=== PATIENT | female | born 1960 | race African-American/Black ===

== ENCOUNTER 2017-07-03 10:07 | Day surgery (SDC) | payer BC ==
[2017-07-02 15:12] VITALS: BMI 31.8
[2017-07-03] MEDS ORDERED: PROPOFOL 20 ML ONE ×2 (10:12)
[2017-07-03 11:26] VITALS: TEMP 97.6
[2017-07-03 12:22] VITALS: BP 128/80; PULSE 60
== END 2017-07-03 12:15 | disposition home or self-care (01) ==
LOC: JASU-ENDO 10:07
PROVIDERS: ATTEND Internal Medicine Gastroenterology
PROC: 0DJD8ZZ Inspection of Lower Intestinal Tract, Via Natural or Artificial Opening Endoscopic (ICD-10-PCS; principal; 2017-07-03 10:30)
DX: Z86.010 Personal history of colon polyps (principal); K57.30 Diverticulosis of large intestine without perforation or abscess without bleeding; K64.8 Other hemorrhoids

== ENCOUNTER 2018-09-14 05:58 | Inpatient (IN) | payer BC ==
[2018-09-10 10:11] VITALS: BMI 30.4
[2018-09-14] MEDS ORDERED: GABAPENTIN 300 MG CAPSULE (FP) PO ONE (06:41)
[2018-09-14] MEDS ORDERED: CELECOXIB 200 MG CAPSULE PO ONE (06:41)
[2018-09-14] MEDS ORDERED: TRANEXAMIC ACID 1000 MG/10 ML VIAL IVPUSH ONE (06:41)
[2018-09-14] MEDS ORDERED: CEFAZOLIN 2 GM/D5W 2 GM/50 ML ML IVPB ONE (06:41)
[2018-09-14] MEDS ORDERED: oxyCODONE HCL 10 MG SUSTAINED ACTING TABLET PO ONE (06:41)
[2018-09-14] MEDS ORDERED: GABAPENTIN 300 MG CAPSULE (FP) ONE (07:00)
[2018-09-14] MEDS ORDERED: CELECOXIB 200 MG CAPSULE ONE (07:00)
[2018-09-14] MEDS ORDERED: oxyCODONE HCL 10 MG SUSTAINED ACTING TABLET ONE (07:00)
[2018-09-14] MEDS ORDERED: SUCCINYLCHOLINE CHLORIDE 200 MG/10 ML VIAL ONE (07:16)
[2018-09-14] MEDS ORDERED: ePHEDrine SULFATE 50 MG/1 ML AMPULE ONE (07:16)
[2018-09-14] MEDS ORDERED: PROPOFOL 20 ML ONE ×6 (07:16)
[2018-09-14] MEDS ORDERED: BUPIVACAINE HCL/PF 0.5% (5MG/ML) 10 ML VIAL ONE (07:20)
[2018-09-14] MEDS ORDERED: BUPIVACAINE LIPOSOME/PF (EXPAREL) 266 MG/20 ML VIAL ONE (07:21)
[2018-09-14] MEDS ORDERED: MIDAZOLAM HCL 2 MG/2 ML SINGLE DOSE VIAL ONE (07:21)
[2018-09-14] MEDS ORDERED: ceFAZolin SODIUM 1 GM VIAL ONE (07:28)
[2018-09-14] MEDS ORDERED: VANCOMYCIN 1,000 MG VIAL (RESTRICTED TO ID ONLY) ONE (07:29)
--- NOTE | 2018-09-14 07:55 | HP ---
Satellite [facility] - Chief Complaint Chief Complaint: right knee pain - Past Medical History Allergies/Adverse Reactions: Allergies Allergy/AdvReac Type Severity Reaction Status Date / Time No Known Allergies Allergy Verified 09/10/18 10:14 ...LMP: 01/16/14 - Current Medications Current Medications: Home Medications Medication Instructions Recorded Amlodipine Besylate [Norvasc -] 10 mg PO DAILY 05/16/13 Levothyroxine [Synthroid -] 100 mcg PO DAILY 05/16/13 Rosuvastatin Calcium [Crestor] 20 mg PO HS 05/16/13 Sitagliptin Phos/Metformin HCl 1 each PO DAILY 07/03/17 [Janumet 50-500 mg Tablet] Acetaminophen [Tylenol] 650 mg PO ASDIR PRN 09/14/18 Satellite Physical Exam - Physical Examination Vital Signs: Vital Signs Period Temp Pulse Resp BP Sys/Hill Pulse Ox Last 24 Hr 98.1 F 72 18 133/84 General Appearance: Well Nourished, Well Developed, Alert & Oriented x3 ENT: Clear Lung: Normal air movement Heart: Regular rate & rhythm Extremities: Other (right knee- well healed surgical scar, + ttp, decr rom, nvi xrays show medial compartment prosthesis in good position, diffuse djd in lateral and PF) Neurological: Intact, Alert, Oriented Satellite Impression/Plan - Impression/Plan Impression: right knee djd s/p medial UKR Operative Procedure: right conversion TKR- lashonda Date to be Performed: 09/14/18
[2018-09-14] MEDS ORDERED: MAG HYDROX/AL HYDROX/SIMETH 30 ML UNIT-DOSE CUP PO PRN (10:10)
[2018-09-14] MEDS ORDERED: ONDANSETRON 4 MG/2 ML VIAL IVPUSH PRN ×2 (10:10→11:12)
[2018-09-14] MEDS ORDERED: MAGNESIUM HYDROX 2400MG/30ML ORAL SUSPENSION 30 ML CUP PO PRN (10:10)
--- NOTE | 2018-09-14 10:13 | OP ---
Operative Note - Note: Operative Date: 09/14/18 (zain) Pre-Operative Diagnosis: right knee djd s/p ukr Operation: right knee conversion TKR- makoplasty, removal of hardare Post-Operative Diagnosis: Same as Pre-op Surgeon: Cabrera Celeste Buffing Machine Operator Semiautomatic: Eamon Shi) Anesthesiologist/DOCUMENT MANAGEMENT SPECIALIST: Vineet Rankin Anesthesia: Spinal, Local Specimens Removed: bone fragments, synovium, UKR prosthesis Estimated Blood Loss (mls): 150 Operative Report Dictated: Yes
[2018-09-14] MEDS ORDERED: LACTATED RINGERS SOLUTION 1,000 ML IV SCH (10:15)
[2018-09-14] MEDS ORDERED: PROMETHAZINE HCL 25 MG/1 ML VIAL IVPUSH PRN (11:12)
[2018-09-14] MEDS ORDERED: ACETAMINOPHEN 325 MG TABLET (FP) PO SCH (11:15)
[2018-09-14] MEDS: oxyCODONE HCL 5 MG TABLET PO PRN ×2 (11:23→14:25)
[2018-09-14] MEDS: INSULIN SLIDING SCALE (NOVOLOG) 1 VIAL SQ SCH ×3 (14:32→21:49)
[2018-09-14] MEDS: CEFAZOLIN 2 GM/D5W 2 GM/50 ML ML IVPB SCH ×2 (17:10→23:10)
[2018-09-14] MEDS: ACETAMINOPHEN 325 MG TABLET (FP) PO SCH ×2 (17:12→23:11)
--- NOTE | 2018-09-14 18:50 | OP ---
DATE OF OPERATION: 09/14/2018 PREOPERATIVE DIAGNOSIS: Degenerative joint disease right knee, status post partial knee replacement. POSTOPERATIVE DIAGNOSIS: Degenerative joint disease right knee, status post partial knee replacement. PROCEDURE PERFORMED: Revision of right partial knee replacement to a right total knee replacement, with robotic-assisted navigation (MAKOplasty). SURGICAL ATTENDING: Cabrera Celeste MD COMPUTER RECYCLING WORKER: FRANDY Whiteside SECOND CYLINDER WORKER: Carlos Rowe MD ANESTHESIA: Regional and spinal. CLOSURE: A 3 femur, a 2 tibia, a 13 polyethylene, a 29 patella Triathlon components, cemented; number 1 Vicryl fascia, 0 and 2-0 subcutaneous, 3-0 Monocryl subcuticular, with skin glue for the skin. ESTIMATED BLOOD LOSS: Approximately 100 mL. COMPLICATIONS: None. CONDITION: To the recovery room in stable condition. DESCRIPTION OF PROCEDURE: The patient was taken to the operating room on September 14, 2018. Regional and spinal anesthesia was administered by the anesthesiologist. IV Kefzol was administered prophylactically prior to the case. A well-padded pneumatic tourniquet was placed on the right proximal thigh. The right lower extremity was prepped and draped in the usual sterile fashion. Utilizing the previous incision, which was a medial parapatellar incision for the patient's unicompartmental knee replacement, we propagated that incision and curved it around the patella more centrally proximally and extended it distally. Hemostasis was achieved with Bovie cautery. Sharp dissection was carried down to the level of the fascia with extension, which allowed us to perform the procedure. A medial parapatellar arthrotomy was then performed. The patella was inverted, and the knee was flexed up to 90 degrees. Subperiosteal dissection was performed on the anteromedial proximal tibia. The ACL and PCL and the anterior horn of the lateral meniscus were cut to facilitate bringing the knee forward. There was a lot of discolored synovium inside the knee and on the cartilage. A synovectomy was performed and sent to Pathology for evaluation. There was extensive disease on the lateral and patellofemoral quadrants of the knee. Check points were malleted both in the femur and in the tibia. Two pins were drilled in parallel fashion from the anteromedial section of the distal femur, from anterior proximal to posterior distal. These 2 pins were fastened with the femoral navigation array. Two small stab incisions were made a handbreadth below the tibial tubercle, and 2 pins were drilled through the outer cortex, engaging the posterior cortex but not through the posterior cortex. They were then fastened to the tibial navigation array. The knee was then registered with the navigation device by center of rotation of the hip, medial and lateral malleoli, multiple sites both on the femur and on the tibia. Confirmation of excellent registration was confirmed by "popping the bubbles." The knee was then stressed in both extension and 90 degrees of flexion to retread builder the gaps, medially and laterally. The virtual position of the component was manipulated to make sure that these gaps would be equal. The tibia was dropped to allow the tibial cut to be below the level of the tibial partial knee replacement baseplate. The polyethylene thickness was virtually adjusted accordingly to be a 13 mm thickness. The robot was then brought in the field and was used to cut the bones to the specifications which we determined on the virtual model of the knee. This was done after the unicompartmental components were removed. They were removed quite easily by osteotomes, with minimal bone loss. After the bone cuts were made, equal gaps were measured in both flexion and extension, with a 13-mm spacer. The box was then made on the femur for facilitating a 3 component. The trial component was malleted and fit line to line. A tibial baseplate size 2 with a 13-mm insert was allowed to "find itself." It was clipped into place and also confirmed to be in the ideal position by use of the navigation device as well. The knee was taken through a range of motion and found to go full extension and full flexion, with excellent stability throughout the range of motion. The patella was calipered for thickness and then osteotomized down to the appropriate level. A 29 lollipop was used to drill the lug holes in the patella. A trial component was then applied. The knee was taken through a range of motion and found to have excellent tracking of the patella throughout the range of motion with "no thumbs." The trial components were removed. The keel was made in the femur. Curettes were used to remove any residual cement that was both on the tibia and on the femur. It was decided to add a 50-mm stem to the tibial component, as there was some central bone loss due to removing of the cement from the keel and from the lug holes on the bottom of the component. The leg was exsanguinated with an Esmarch bandage. The knee was thoroughly irrigated to remove any loose fragments and soft tissue, and then dried thoroughly. The real total knee components were then cemented in using modern generation cement techniques with antibiotic cement and pressurization. After the cement was hardened, the knee was thoroughly inspected to remove all excess cement from in and around the knee. The real polyethylene was then clipped into place. Range of motion, stability and tracking were as described earlier. The knee was again thoroughly irrigated and then dried. Vancomycin powder was placed inside the incision. The medial parapatellar arthrotomy was then closed using number 1 Vicryl interrupted suture. After closure, the knee was again taken through a range of motion and found to have no undue tension on the repair, with excellent tracking and stability throughout. The subcutaneous was pulse antibiotic irrigated, and then closed with 0 and 2-0 Vicryl, and 3-0 Monocryl with skin glue was used for the skin. Prior to closure, the pins and check points were removed. The distal incisions were irrigated and closed with 4-0 undyed Vicryl. An Aquacel dressing was placed on both incisions, followed by a Mcelroy dressing. The tourniquet was only inflated for the portion of cementing in the component. It was then deflated prior to closure. The patient was awakened from anesthesia and transferred to the recovery room in stable condition. No complications. Estimated blood loss was about 100 to 150 mL. Anibal ARROYO/[id number]
[2018-09-14] MEDS: ROSUVASTATIN CA 20 MG TABLET (FP) PO SCH (21:00)
[2018-09-14] MEDS: SENNOSIDES/DOCUSATE COMBO (SENNA PLUS) TABLET (UD) PO SCH (21:00)
[2018-09-14] MEDS: oxyCODONE HCL 10 MG SUSTAINED ACTING TABLET PO SCH (21:00)
[2018-09-15] MEDS: ACETAMINOPHEN 325 MG TABLET (FP) PO SCH ×3 (05:34→12:10)
[2018-09-15] MEDS: oxyCODONE HCL 5 MG TABLET PO PRN ×2 (06:46→09:26)
[2018-09-15] MEDS: sitaGLIPtin PHOSPHATE 50 MG TABLET PO SCH (06:47)
[2018-09-15] MEDS: LEVOTHYROXINE NA 100 MCG TABLET (FP) PO SCH (06:47)
[2018-09-15] MEDS: metFORMIN HCL 500 MG TABLET (FP) PO SCH (06:47)
[2018-09-15] MEDS: INSULIN SLIDING SCALE (NOVOLOG) 1 VIAL SQ SCH ×4 (07:05→21:15)
[2018-09-15 08:00] LABS: HEMATOCRIT 30.5 % (32.4-45.2); HEMOGLOBIN 9.9 GM/dl (10.7-15.3); MCH 27.4 pg (25.7-33.7); MCHC 32.6 g/dl (32.0-36.0); MEAN CELL VOLUME 84.1 fl (80-96); MEAN PLT VOLUME 7.1 fl (7.5-11.1); PLATELET COUNT 408 K/MM3 (134-434); RBC 3.62 M/mm3 (3.60-5.2); RDW 13.6 % (11.6-15.6); WHITE BLOOD COUNT 8.1 K/mm3 (4.0-10.8)
[2018-09-15] MEDS: ASPIRIN 325 MG TABLET PO SCH (08:05)
--- NOTE | 2018-09-15 08:43 | PN ---
Progress Note (short form) - Note Progress Note: Pt s/p right TKR with block/spinal. Pt states pain is under good control. No apparent anesthetic issues/complications noted - PT will ambulate with the patient today.
[2018-09-15] MEDS: oxyCODONE HCL 10 MG SUSTAINED ACTING TABLET PO SCH ×2 (09:25→21:15)
[2018-09-15] MEDS: SENNOSIDES/DOCUSATE COMBO (SENNA PLUS) TABLET (UD) PO SCH ×2 (09:25→21:16)
[2018-09-15] MEDS: amLODIPine BESYLATE 10 MG TABLET (FP) PO SCH (09:25)
[2018-09-15] MEDS: PANTOPRAZOLE 40 MG TABLET (FP) PO SCH (09:26)
[2018-09-15] MEDS: MULTIVITAMINS (DAILY MVI) TABLET (FP) PO SCH (09:26)
[2018-09-15] MEDS ORDERED: PATIENT'S OWN MEDICATION (NON-FORMULARY) (Sitagliptin Phos/Metformin Hcl [Janumet 50-500 M PO SCH (10:00)
--- NOTE | 2018-09-15 11:57 | PN ---
Progress Note (short form) - Note Progress Note: Ortho Pt seen and examined s/p right conversion lashonda TKR pod #1 Selected Entries 09/15/18 04:00 Temperature 98.2 F Pulse Rate 92 H Respiratory 19 Rate Blood Pressure 131/73 Laboratory Tests 09/15/18 07:20 WBC 8.1 Hgb 9.9 L Hct 30.5 L Plt Count 408 dressing c/d/i, calf soft, nt rom 0-40, nvi a/p PT dvt ppx pain control d/c home tomorrow if stable
[2018-09-15] MEDS: ROSUVASTATIN CA 20 MG TABLET (FP) PO SCH (21:17)
[2018-09-16] MEDS: ACETAMINOPHEN 325 MG TABLET (FP) PO SCH ×3 (00:10→13:27)
[2018-09-16 03:39] VITALS: TEMP 98.3
[2018-09-16] MEDS: INSULIN SLIDING SCALE (NOVOLOG) 1 VIAL SQ SCH (06:49)
[2018-09-16] MEDS: metFORMIN HCL 500 MG TABLET (FP) PO SCH (06:49)
[2018-09-16] MEDS: sitaGLIPtin PHOSPHATE 50 MG TABLET PO SCH (06:49)
[2018-09-16] MEDS: LEVOTHYROXINE NA 100 MCG TABLET (FP) PO SCH (06:49)
[2018-09-16 06:53] VITALS: BP 128/60; PULSE 96
[2018-09-16] MEDS ORDERED: INSULIN (NOVOLOG) ASPART 100 UNITS/ML 10ML VIAL ONE (06:56)
[2018-09-16] MEDS: ASPIRIN 325 MG TABLET PO SCH (08:00)
[2018-09-16 08:28] LABS: HEMATOCRIT 28.4 % (32.4-45.2); MCHC 31.8 g/dl (32.0-36.0); MEAN CELL VOLUME 84.9 fl (80-96); MEAN PLT VOLUME 6.9 fl (7.5-11.1); PLATELET COUNT 406 K/MM3 (134-434); RBC 3.34 M/mm3 (3.60-5.2); RDW 13.3 % (11.6-15.6)
--- NOTE | 2018-09-16 08:39 | DS ---
Physical Examination Vital Signs: Vital Signs Temperature 98.3 F 09/16/18 04:00 Pulse Rate 96 H 09/16/18 04:00 Respiratory Rate 19 09/16/18 08:27 Blood Pressure 128/60 09/16/18 04:00 O2 Sat by Pulse Oximetry (%) 97 09/16/18 08:27 Discharge Summary Reason For Visit: OSTEOARTHRITIS Procedures: Principal: right tkr Hospital Course: admitted for elective right conversion lashonda tkr, uneventful post-op, stable for d/c Condition: Good - Instructions Diet, Activity, Other Instructions: Post-op Instructions-Total Knee Replacement Call the office for a follow-up appointment in 1 week - [phone] Aspirin 325mg daily for 6 weeks. Pain medication was sent into your pharmacy. Apply Graduated Compression Stockings (TEDs) to both lower extremities- remove daily for hygiene ONLY Apply Sequential Compression Device (SCDs) to both Lower extremities remove for PT and hygiene ONLY Apply cold packs to affected area for 15 minutes every 2 hours. Physical Therapist will come to your home for the first 5 days. You will be set up with outpatient PT at your first post-operative visit. Patient may ambulate as tolerated-encourage self care (at least every 2-3 hours while awake) with walker or cane Maintain Aquacel (waterproof) dressing to operative wound (will be removed by surgeon at first office visit) Shower with Aquacel dressing in place-if Aquacel integrity compromised, remove and apply dry sterile dressing and notify Orthopedist. DO NOT SHOWER unless Orthopedists approves without Aquacel dressing CONTACT THE OFFICE FOR ANY CHANGE IN YOUR CONDITION (for example-fever greater than 102 degrees, excessive bleeding from operative site, purulent drainage, severe swelling or pain) GO TO THE EMERGENCY ROOM IF THERE IS A MEDICAL EMERGENCY Knee Precautions: * Keep a rolled towel under affected heel while in bed or chair (to keep knee in extension) * Keep affected leg elevated except during mealtimes * DO NOT PLACE PILLOW UNDER AFFECTED KNEE * If you have any questions, please do not hesitate to call the office - [phone]. Referrals: Carlos Rowe MD [Staff Physician] - Disposition: VNS/HOME HEALTH CARE - Home Medications Comprehensive Discharge Medication List: Ambulatory Orders Amlodipine Besylate [Norvasc -] 10 mg PO DAILY 05/16/13 Levothyroxine [Synthroid -] 100 mcg PO DAILY 05/16/13 Rosuvastatin Calcium [Crestor] 20 mg PO HS 05/16/13 Sitagliptin Phos/Metformin HCl [Janumet 50-500 mg Tablet] 1 each PO DAILY Acetaminophen [Tylenol] 650 mg PO ASDIR PRN 09/14/18 Aspirin [ASA -] 325 mg PO DAILY@0800 tablet 09/14/18 Oxycodone HCl/Acetaminophen [Percocet 5-325 mg Tablet -] 1 - 2 tab PO Q6H #50 tab MDD 8 09/14/18
--- NOTE | 2018-09-16 08:39 | PN ---
Progress Note (short form) - Note Progress Note: Ortho Pt seen and examined s/p right conversion lashonda TKR pod #2 Selected Entries 09/16/18 04:00 Temperature 98.3 F Pulse Rate 96 H Respiratory 19 Rate Blood Pressure 128/60 Laboratory Tests 09/16/18 07:04 WBC Pending Hgb Pending Hct Pending Plt Count Pending dressing c/d/i, calf soft, nt rom 0-60, nvi a/p PT dvt ppx pain control d/c home today f/u in 1 week
[2018-09-16 09:02] LABS: WHITE BLOOD COUNT 8.5 K/mm3 (4.0-10.8)
[2018-09-16] MEDS: PANTOPRAZOLE 40 MG TABLET (FP) PO SCH (10:00)
[2018-09-16] MEDS: oxyCODONE HCL 10 MG SUSTAINED ACTING TABLET PO SCH (10:00)
[2018-09-16] MEDS: amLODIPine BESYLATE 10 MG TABLET (FP) PO SCH (10:06)
[2018-09-16] MEDS: SENNOSIDES/DOCUSATE COMBO (SENNA PLUS) TABLET (UD) PO SCH (10:07)
[2018-09-16] MEDS: MULTIVITAMINS (DAILY MVI) TABLET (FP) PO SCH (10:27)
--- NOTE | 2018-09-17 17:20 | PATH ---
Surgical Pathology Report Patient Name: YURIY CARBALLO Med. Rec. #: [id number] /Age/Gender: 1960 (Age: 58) / F Account: [id number] Location: [facility] MED-SURG Taken: 09/14/2018 Received: 09/14/2018 Reported: 09/17/2018 Physicians: Cabrera Celeste M.D. Specimen(s) Received A: EXPLANTED HARDWARE RIGHT KNEE B: RIGHT KNEE BONE C: RIGHT KNEE SYNOVIUM Clinical History Osteoarthritis Final Diagnosis A. KNEE, RIGHT, EXPLANTED HARDWARE, REVISION TOTAL KNEE REPLACEMENT MAKOPLASTY: SURGICAL HARDWARE. MACROSCOPIC DIAGNOSIS. B. KNEE, RIGHT, BONE, REVISION TOTAL KNEE REPLACEMENT MAKOPLASTY: BONE WITH DEGENERATIVE AND REACTIVE CHANGES. C. KNEE, RIGHT, SYNOVIUM, REVISION TOTAL KNEE REPLACEMENT MAKOPLASTY: FIBROSYNOVIAL TISSUE WITH HEMORRHAGE, CHRONIC INFLAMMATION, HEMOSIDERIN DEPOSITION, AND REACTIVE CHANGES. Electronically Signed Mary Urrutia M.D. Gross Description A. Received fresh labeled "explanted hardware right knee," is a 4.3 x 2.5 x 0.7 cm white plastic portion of hardware as well as 2 courtney metallic portions of hardware measuring 4.7 and 5.5 cm in greatest dimension. No soft tissue is present. No sections are submitted, gross only. B. Received in formalin labeled "right knee bone," are 3 polk portions of bone measuring 7.0 x 6.4 x 2.0 cm in aggregate. One of the portions displays a 2.3 cm in greatest dimension area of eburnation. The remaining articular surfaces are polk-brown and granular. The underlying trabecular bone is yellow and hard. Glass Cut Off Tender sections are submitted in one cassette, following decalcification. C. Received in formalin labeled "right knee synovium," is a 4.3 x 3.8 x 1.2 cm aggregate of polk-brown portions of soft tissue, consistent with synovial tissue. Glass Cut Off Tender sections are submitted in one cassette. 09/16/201809/16/2018
== END 2018-09-16 13:20 | disposition home health service (06) | DRG 468 ==
LOC: FM/S 05:58
PROVIDERS: ADMIT Orthopaedic Surgery; ATTEND Orthopaedic Surgery
PROC: 0SPC0JZ Removal of Synthetic Substitute from Right Knee Joint, Open Approach (ICD-10-PCS; 2018-09-14)
PROC: 0SRC0J9 Replacement of Right Knee Joint with Synthetic Substitute, Cemented, Open Approach (ICD-10-PCS; principal; 2018-09-14 08:38)
DX: M17.11 Unilateral primary osteoarthritis, right knee (principal)
CPT/HCPCS: 36415; 73560-TC-RT-FY; 82962; 85027; 88300-TC; 88304-TC; 88311-TC; 94760; 97116-GP; 97163-GP

== ENCOUNTER 2020-04-25 10:51 | Day surgery (SDC) | payer BC ==
[2020-04-20 16:14] VITALS: BMI 31.0
--- OUTSIDE RECORDS SUMMARY | 2020-04-25 10:55 | XMS ---
:1960 Author Organization [facility] Care Team Providers Name Role Phone Antonieta, Mary Unavailable Unavailable Lufrano, Mary Unavailable Unavailable Lufrano, Mary Unavailable Unavailable Lufrano, Mary Unavailable Unavailable Lufrano, Mary Unavailable Unavailable Lufrano, Mary Unavailable Unavailable Lufrano, Mary Unavailable Unavailable Re-disclosure Warning The records that you are about to access may contain information from federally- assisted alcohol or drug abuse programs. If such information is present, then the following federally mandated warning applies: This information has been disclosed to you from records protected by federal confidentiality rules (42 CFR part 2). The federal rules prohibit you from making any further disclosure of this information unless further disclosure is expressly permitted by the written consent of the person to whom it pertains or as otherwise permitted by 42 CFR part 2. A general authorization for the release of medical or other information is NOT sufficient for this purpose. The Federal rules restrict any use of the information to criminally investigate or prosecute any alcohol or drug abuse patient.The records that you are about to access may contain highly sensitive health information, the redisclosure of which is protected by Article 27-F of the [place] State Public Health law. If you continue you may haveaccess to information: Regarding HIV / AIDS; Provided by facilities licensed or operated by the [facility] Office of Mental Health; or Provided by the [facility] Office for People With Developmental Disabilities. If such information is present, then the following [facility] mandated warning applies: This information has been disclosed to you from confidential records which are protected by state law. State law prohibits you from making any further disclosure of this information without the specific written consent of the person to whom it pertains, or as otherwise permitted by law. Any unauthorized further disclosure in violation of state law may result in a fine or long term sentence or both. A general authorization for the release of medical or other information is NOT sufficient authorization for further disclosure. Encounters Encounter Providers Location Date Indications Data Source(s ) Attender: Mary 04/02/2020 [facility] (S t [facility] 12:00:00 AM EDT Medical, PC) Office Medications Medication Brand Start Product Dose Route Administrative Pharmacy [facility] Indications Reaction Description Data Name Date Form Instructions Instructions Source(s) Rosuvastati ROSUVA 04/02/ complet ROSUVA STATIN [facility] (St n calcium 5 STATIN 2019 ed [facility] Oral :50896 12:00: Medical, Tablet 4 00 AM PC) ROSUVASTATI EDT N:[id number] Levothyroxi SYNTHR 04/02/ complet SYNTHR OID [facility] (St ne Sodium OID:96 2019 ed [facility] 0.088 MG 6282 12:00: Medical, Oral Tablet 00 AM PC) [Synthroid] EDT SYNTHROID:9 27326 Amlodipine AMLODI 04/02/ complet AMLODIP INE [facility] (St 5 MG Oral PINE:1 2019 ed [facility] Tablet 55774 12:00: Medical, AMLODIPINE: 00 AM PC) [id number] EDT METFORMIN 04/02/ complet METFORMIN [facility] (St (EQV-FORTAM 2020 ed (EQV-FORTAME [facility] ET):6080812 12:00: T) Medica l, 00 AM PC) EDT Insurance Providers Payer name Policy type Policy ID Covered Covered republican's Policy P raysa / Coverage republican ID relationship to Doran Inf ormation type doran BC PPO [id number] SP [id number] EMPIRE PLAN [id number] ([facility] [place] [id number] SP [id number] HEALTHCARE PPO [facility] [id number] SP [id number] 225 CARE HMO/POS/EPO BC PPO [id number] SP [id number] Problems, Conditions, and Diagnoses Code Display Name Description Problem Type Effective Dates Data Source(s) K30 Functional FUNCTIONAL Problem 04/02/2020 [facility] (St dyspepsia DYSPEPSIA 12:00:00 AM EDT [facility] Surgeries/Procedures Procedure Description Date Indications Data Source(s) Documentation of current 04/02/2020 [facility] ([facility] medications (procedure) 12:00:00 AM EDT [facility], ) OFFICE CONSULTATION 04/02/2020 [facility] ( [facility] NEW/ESTAB PATIENT 40 MIN 12:00:00 AM EDT [facility], ) Results ID Date Data Source [id number] 04/21/2020 12:11:00 PM EDT [facility] Name Value Range Interpretation Description Data Sup porting Code Source(s) Document(s ) SARS [facility] coronavirus 2 RNA This lab was ordered by JONATHAN YOST and reported by [facility]. Procedure Social History Code Duration Value Status Description Data Source(s ) Smoking 04/02/2020 Non Smoker Non completed Non Smoker Non [facility] ([facility] 12:00:00 AM EDT Drinker No Drug Drinker No Drug Use [facility], ) Use Smoking 04/02/2020 Unknown if ever completed Unknown if ever [facility] EN ([facility] 12:00:00 AM EDT smoked smoked [facility], ) Vital Signs ID Date Data Source UNK Name Value Range Interpretation Code Description Data Source(s) Heart rate 69 /min 69 /min [facility] ([facility] , ) Inhaled oxygen 98 % 98 % [facility] ([facility], ) Body mass index 31 kg/m2 31 kg/m2 [facility] (S t (BMI) [Ratio] [facility]) Diastolic blood 82 mm[Hg] 82 mm[Hg] [facility] (S t pressure [facility]) Systolic blood 126 mm[Hg] 126 mm[Hg] [facility] ( pressure [facility]) Body weight 198 lb 198 lb [facility] ([facility]) Body height 67 in 67 in [facility] ([facility])
[2020-04-25] MEDS ORDERED: LIDOCAINE HCL/PF 2% SDV 5ML VIAL ONE (12:00)
[2020-04-25 12:40] VITALS: TEMP 97.9
[2020-04-25 12:50] VITALS: BP 109/71; PULSE 78
--- NOTE | 2020-04-27 15:15 | PATH ---
Surgical Pathology Report Patient Name: YURIY CARBALLO [facility]. Rec. #: [id number] /Age/Gender: 1960 (Age: 59) / F Account: [id number] Location: [facility] Taken: 04/25/2020 Received: 04/25/2020 Reported: 04/27/2020 Physicians: Mary Fung M.D. Specimen(s) Received A: SECOND PORTION DUODENUM B: ANTRUM C: GE JUNCTION Clinical History Dyspepsia Postoperative diagnosis: Linear ulcers, gastritis Final Diagnosis A. DUODENUM, SECOND PORTION, BIOPSY: DUODENAL MUCOSA WITHOUT SIGNIFICANT PATHOLOGIC FINDINGS. B. GASTRIC ANTRUM, BIOPSY: GASTRIC ANTRAL MUCOSA WITH MILD CHRONIC GASTRITIS. IMMUNOHISTOCHEMICAL STAIN FOR H. PYLORI IS NEGATIVE. C. GE JUNCTION, BIOPSY: COLUMNAR (GASTRIC CARDIAC TYPE) MUCOSA WITH MILD CHRONIC INFLAMMATION. NO SQUAMOUS MUCOSA, INTESTINAL METAPLASIA,OR DYSPLASIA IDENTIFIED. IMMUNOHISTOCHEMICAL STAIN FOR H. PYLORI IS NEGATIVE. Positive and negative controls (internal if applicable) show appropriate results. Electronically Signed Mary Urrutia M.D. Gross Description A. Received in formalin, labeled "biopsy second portion of duodenum" is a polk, irregular portion of soft tissue measuring 0.3 cm. in greatest dimension. The specimen is submitted in toto in one cassette. B. Received in formalin, labeled "biopsy gastric antrum" is a polk, irregular portion of soft tissue measuring 0.3 cm. in greatest dimension. The specimen is submitted in toto in one cassette. C. Received in formalin, labeled "biopsy GE junction" is a polk, irregular portion of soft tissue measuring 0.3 cm. in greatest dimension. The specimen is submitted in toto in one cassette. /04/26/2020 saudi/04/26/2020
== END 2020-04-25 12:50 | disposition home or self-care (01) ==
LOC: FASU-ENDO 10:51
PROVIDERS: ATTEND Internal Medicine Gastroenterology
PROC: 0DB68ZX Excision of Stomach, Via Natural or Artificial Opening Endoscopic, Diagnostic (ICD-10-PCS; 2020-04-25)
PROC: 0DB48ZX Excision of Esophagogastric Junction, Via Natural or Artificial Opening Endoscopic, Diagnostic (ICD-10-PCS; 2020-04-25)
PROC: 0DB98ZX Excision of Duodenum, Via Natural or Artificial Opening Endoscopic, Diagnostic (ICD-10-PCS; principal; 2020-04-25 12:16)
DX: K25.9 Gastric ulcer, unspecified as acute or chronic, without hemorrhage or perforation (principal); K29.50 Unspecified chronic gastritis without bleeding; K20.90 Esophagitis, unspecified without bleeding; R10.13 Epigastric pain
CPT/HCPCS: 82962; 88305-TC; 88342-TC

== ENCOUNTER 2020-07-11 09:35 | Day surgery (SDC) | payer BC, OTHER ==
[2020-07-09 16:45] VITALS: BMI 28.1
[2020-07-11] MEDS ORDERED: PROPOFOL 20 ML ONE ×3 (09:56→10:31)
[2020-07-11] MEDS ORDERED: LIDOCAINE HCL/PF 2% SDV 5ML VIAL ONE ×2 (09:56→10:31)
[2020-07-11 11:28] VITALS: TEMP 98
[2020-07-11 11:37] VITALS: BP 128/75; PULSE 75
== END 2020-07-11 11:36 | disposition home or self-care (01) ==
LOC: FASU-ENDO 09:35
PROVIDERS: ATTEND Internal Medicine Gastroenterology
PROC: 0DB68ZX Excision of Stomach, Via Natural or Artificial Opening Endoscopic, Diagnostic (ICD-10-PCS; principal; 2020-07-11 10:50)
DX: Z09 Encounter for follow-up examination after completed treatment for conditions other than malignant neoplasm (principal); K29.50 Unspecified chronic gastritis without bleeding; Z87.11 Personal history of peptic ulcer disease

== ENCOUNTER 2021-04-09 15:36 | Emergency (ER) | payer BC, OTHER ==
[2021-04-09 15:47] VITALS: BP 145/84; PULSE 67; TEMP 98.1; BMI 26.6
== END 2021-04-09 18:46 | disposition home or self-care (01) ==
LOC: JER 15:36
DX: K59.00 Constipation, unspecified (principal)
CPT/HCPCS: 36415; 74019-TC-FY; 82272; 99284-25